=== PATIENT | male | born 1960 | race Caucasian/White ===

== ENCOUNTER → 2019-09-23 14:34 | Outpatient (BNVA) | payer SELFPAY | PROVIDERS: PCP Nurse Practitioner Family; Visit Provider Nurse Practitioner | DX: M25.571 Pain in right ankle and joints of right foot (principal); S82.831A Other fracture of upper and lower end of right fibula, initial encounter for closed fracture; X58.XXXA Exposure to other specified factors, initial encounter | CPT/HCPCS: 73610 ==

== ENCOUNTER → 2019-09-29 11:35 | Outpatient (BNVA) | payer SELFPAY | PROVIDERS: PCP Nurse Practitioner Family; Visit Provider Nurse Practitioner Family | DX: M25.571 Pain in right ankle and joints of right foot (principal) | CPT/HCPCS: 73610; 80053; 83036; 85025 ==

== ENCOUNTER → 2019-10-04 10:15 | Outpatient (BNVA) | payer SELFPAY | PROVIDERS: PCP Nurse Practitioner Family; Referring Provider Nurse Practitioner Family; Visit Provider Podiatrist Foot & Ankle Surgery | DX: S99.911A Unspecified injury of right ankle, initial encounter (principal); M77.31 Calcaneal spur, right foot; X58.XXXA Exposure to other specified factors, initial encounter | CPT/HCPCS: 73600; 73630 ==

== ENCOUNTER → 2019-10-11 11:25 | Outpatient (BNVA) | payer SELFPAY | PROVIDERS: PCP Nurse Practitioner Family; Visit Provider Podiatrist Foot & Ankle Surgery | DX: S82.891A Other fracture of right lower leg, initial encounter for closed fracture (principal); X58.XXXA Exposure to other specified factors, initial encounter | CPT/HCPCS: 73610 ==

== ENCOUNTER → 2019-10-25 12:58 | Outpatient (BNVA) | payer SELFPAY | PROVIDERS: PCP Nurse Practitioner Family; Visit Provider Podiatrist Foot & Ankle Surgery | DX: S82.831D Other fracture of upper and lower end of right fibula, subsequent encounter for closed fracture with routine healing; S92.501D Displaced unspecified fracture of right lesser toe(s), subsequent encounter for fracture with routine healing; W19.XXXD Unspecified fall, subsequent encounter; L03.115 Cellulitis of right lower limb | CPT/HCPCS: 73610 ==

== ENCOUNTER 2019-11-08 10:37 | Outpatient (CLI) | payer SELFPAY | END 2019-11-08 10:38 | disposition home or self-care (01) | LOC: SPT 10:37 | PROVIDERS: PCP Nurse Practitioner Family; Visit Provider Podiatrist Foot & Ankle Surgery | DX: Z46.89 Encounter for fitting and adjustment of other specified devices (principal); S82.831D Other fracture of upper and lower end of right fibula, subsequent encounter for closed fracture with routine healing; S92.501D Displaced unspecified fracture of right lesser toe(s), subsequent encounter for fracture with routine healing; X58.XXXD Exposure to other specified factors, subsequent encounter | CPT/HCPCS: L1902 ==

== ENCOUNTER → 2019-11-29 14:48 | Outpatient (BNVA) | payer SELFPAY | PROVIDERS: PCP Nurse Practitioner Family; Visit Provider Podiatrist Foot & Ankle Surgery | DX: S82.831A Other fracture of upper and lower end of right fibula, initial encounter for closed fracture (principal); L03.115 Cellulitis of right lower limb; S92.501A Displaced unspecified fracture of right lesser toe(s), initial encounter for closed fracture | CPT/HCPCS: 73610 ==

== ENCOUNTER → 2020-02-29 14:28 | Outpatient (BNVA) | payer SELFPAY | PROVIDERS: PCP Nurse Practitioner Family; Visit Provider Podiatrist Foot & Ankle Surgery | DX: S82.831A Other fracture of upper and lower end of right fibula, initial encounter for closed fracture (principal); L03.115 Cellulitis of right lower limb; X58.XXXA Exposure to other specified factors, initial encounter | CPT/HCPCS: 73610 ==

== ENCOUNTER 2020-03-06 13:25 | Outpatient (CLI) | payer SELFPAY ==
[2020-03-06 13:51] LABS: Blood Urea Nitrogen 8 mg/dL (8-23)
--- NOTE | 2020-03-06 14:00 | CT_ITS ---
WS: [id number] CT scan of the abdominal aorta and distal branches into the lower extremities.. Additional two-dimens ional coronal and sagittal reconstruction was performed. MIP images were also performed. 03/06/2020 Clinical Data: Aneurysm of right perforating peroneal artery. Comparison: None. DLP: 1529.[address] scans at [facility] use at least one of these dose optimization techniques: automat ed exposure control; mA and/or kV adjustment per patient size (includes targeted exams where dose is matched to clinical indication); or iterative reconstruction. Findings: The patient has a 3.02 cm AV fistula adjacent to the right ankle. Most likely this fistula is fed by the right peroneal artery and there is rapid return through the venous system of the right lower extr emity into the inferior vena cava. Abdominal aorta is normal in size with no aneurysm. The celiac artery, SMA, BRINDA and renal arteries ar e normal. The abdominal aorta bifurcates normally into the common iliac arteries. The external iliac arteries, common femoral arteries, superficial femoral arteries and arteries of the trifurcation are all normal. Contrast material is seen into the feet. Soft tissue findings of the abdomen and pelvis: No nodules, masses or effusions are seen. The liver shows fatty infiltration. The spleen, pancreas, g allbladder and adrenal glands are normal. The kidneys show excellent bilateral contrast excretion. Th e stomach, small bowel and colon are not remarkable. No appendicitis or diverticulitis is seen. The b ladder is unremarkable. No inguinal hernia is present. The lower thoracic vertebral bodies and lumbar vertebral bodies show osteoarthritis. CT/CT angio abd aorta runof [id number] Impression: 1. Probable 3.02 cm AV fistula adjacent to the right ankle. 2. No other arterial abnormalities are seen. 3. Negative for acute intra-abdominal or pelvic abnormalities.
[2020-03-06] MEDS: iohexol 350 mg/mL 100 mL Btl IV (14:08)
== END 2020-03-06 13:26 | disposition home or self-care (01) ==
LOC: RADWPI 13:28
PROVIDERS: PCP Nurse Practitioner Family; Visit Provider Podiatrist Foot & Ankle Surgery
DX: I72.8 Aneurysm of other specified arteries (principal); E11.9 Type 2 diabetes mellitus without complications; L03.115 Cellulitis of right lower limb; M25.571 Pain in right ankle and joints of right foot; S82.831D Other fracture of upper and lower end of right fibula, subsequent encounter for closed fracture with routine healing; X58.XXXD Exposure to other specified factors, subsequent encounter
CPT/HCPCS: 75635; 82565; 84520; Q9967

== ENCOUNTER 2024-08-10 09:54 | Outpatient (CLI) | payer MEDICARE, SELFPAY ==
--- NOTE | 2024-08-10 09:59 | MR_ITS ---
WS: [id number] MRI LUMBAR SPINE NONCONTRAST HISTORY: LUMBAR STENOSIS COMPARISON: None available. TECHNIQUE: Sagittal and axial multisequence imaging is submitted. Normal lumbar alignment with no compression fractures or marrow edema. Mild disc base narrowing and desiccation. There is a small amount of edema within the anterior L3 vertebral body. No fractures. Conus terminates normally at L1. L1-L2: Mild annular disc bulging with facet and ligamentum flavum hypertrophy. Mild subarticular recess encroachment and mild to moderate bilateral foraminal stenosis. Bilateral foraminal broad-based disc protrusions. L2-L3: Mild annular disc bulging with marked ligamentum flavum and facet arthritis. Disc encroaches upon the thecal sac and subarticular recesses. Greater disc contact on the traversing LEFT L3 nerve root. Bilateral disc bulging or protrusions. Mild central with moderate bilateral subarticular recess and foraminal stenosis. L3-L4: Marked annular disc bulging with ligamentum flavum and facet arthritis. Mild disc encroachment into the subarticular recesses. Bilateral foraminal disc protrusions greatest on the LEFT. Severe LEFT foraminal stenosis and moderate to severe RIGHT foraminal stenosis. L4-L5: Diffuse annular disc bulging, osteophytic ridging and severe facet and ligamentum flavum arthritis. Small central disc protrusion with bilateral foraminal disc osteophyte complexes. Severe RIGHT and moderate LEFT foraminal stenosis. Mild central and moderate subarticular recess stenosis. L5-S1: Mild annular disc bulging with facet arthritis. Moderate bilateral foraminal stenosis. Incompletely visualized cystic mass RIGHT kidney. MR/MR lumbar spine wo con* [id number] IMPRESSION: 1. Multilevel significant stenoses due to combination of disc disease/protrusi ons, osteophytes, ligamentum flavum and facet arthropathy. 2. L3-4: Severe LEFT and moderate to severe RIGHT foraminal stenosis with mild central and subarticular recess encroachment. 3. L4-5: Severe RIGHT and moderate LEFT foraminal stenosis. Mild central and m oderate subarticular recess stenosis. 4. L5-S1: Moderate bilateral foraminal stenosis. 5. L2-3: Mild central with moderate bilateral subarticular recess and foramina l stenosis. 6. L1-2: Mild to moderate bilateral foraminal stenosis with foraminal disc pro trusions and mild subarticular recess encroachment.
== END 2024-08-10 09:55 | disposition home or self-care (01) ==
LOC: RAD 09:57
PROVIDERS: PCP Nurse Practitioner Family; Visit Provider Orthopaedic Surgery
DX: M48.061 Spinal stenosis, lumbar region without neurogenic claudication (principal); M48.07 Spinal stenosis, lumbosacral region; M51.26 Other intervertebral disc displacement, lumbar region; M51.369 Other intervertebral disc degeneration, lumbar region without mention of lumbar back pain or lower extremity pain; M24.28 Disorder of ligament, vertebrae; M47.896 Other spondylosis, lumbar region; R93.7 Abnormal findings on diagnostic imaging of other parts of musculoskeletal system; M25.78 Osteophyte, vertebrae; M51.379 Other intervertebral disc degeneration, lumbosacral region without mention of lumbar back pain or lower extremity pain; N28.89 Other specified disorders of kidney and ureter
CPT/HCPCS: 72148